=== PATIENT | male | born 1995 | race African-American/Black ===

== ENCOUNTER 2016-11-25 17:29 | Emergency (ER) | payer MEDICAID ==
[~2016-11-25] VITALS: Ht 167.6 cm; Wt 74.8 kg
[~2016-11-25 17:29] MED LIST: ATARAX25 MG ORAL; CORTISONE14 GM TP
[2016-11-25 17:31] VITALS: BP 136/69
[2016-11-25] MEDS ORDERED: NKM (17:36)
[2016-11-25] MEDS ORDERED: AMOXICILLIN500 MG ORAL (18:29)
[2016-11-25] MEDS ORDERED: IBUPROFEN600 MG ORAL (18:29)
[2016-11-25 18:37] VITALS: BP 136/69
--- NOTE | 2016-11-25 19:05 | Emergency Room Report ---
History of Present Illness General Chief Complaint: Upper Respiratory Illness Source: Patient Present Illness HPI The patient is a 21-year-old male presenting for fever and cough which began 4 days prior. He denies any known sick contacts recent travel. He denies any past medical history. He describes an 8/10 headache to both sides of his head. Pain does not radiate. He denies other symptoms including nausea, vomiting, shortness of breath, chest pain, rash, neck pain or stiffness, abdominal pain, diarrhea Allergies: Coded Allergies: SULFA (SULFONAMIDE ANTIBIOTICS) (Verified Adverse Reaction, Intermediate, 11/28/15) Patient History Past Medical History: see triage record Pertinent Family History: none Reviewed Nursing Documentation: PMH: Agreed, PSxH: Agreed Nursing Documentation-PMH Past Medical History: No Stated History Review of Systems All Other Systems: negative except mentioned in HPI Physical Exam Vital Signs Date Time Temp Pulse Resp B/P Pulse Ox O2 Delivery O2 Flow Rate FiO2 11/25/16 17:31 102.9 93 16 136/69 99 Room Air Sp02 EP Interpretation: reviewed, normal General Appearance: no apparent distress, alert, GCS 15, non-toxic Head: normocephalic, atraumatic Eyes: bilateral eye PERRL, bilateral eye normal inspection ENT: hearing grossly normal, no angioedema, normal voice, other - Bilat TM erythema and bulging Neck: full range of motion, supple/symm/no masses Respiratory: chest non-tender, lungs clear, normal breath sounds, speaking full sentences Cardiovascular #1: regular rate, rhythm, no edema Musculoskeletal: back normal, gait/station normal, normal range of motion, non- tender Neurologic: alert, oriented x3, responsive, motor strength/tone normal, sensory intact, speech normal Psychiatric: judgement/insight normal, memory normal, mood/affect normal, no suicidal/homicidal ideation Skin: normal color, no rash, warm/dry, well hydrated Lymphatic: adenopathy Medical Decision Making PA Attestation Dr. Alvarado is my supervising physician. Patient management was discussed with my supervising physician Diagnostic Impression: Primary Impression: Otitis media Qualified Codes: H66.90 - Otitis media, unspecified, unspecified ear ER Course The patient is a 21-year-old male presenting for fever and cough Differential diagnosis include but not limited to pharyngitis, sinusitis, AOM, bronchitis, PNA Physical exam: The patient is febrile. No apparent distress HEENT exam reveals bilateral tympanic membrane erythema and bulging. Oropharynx is unremarkable There is bilateral cervical lymphadenopathy Lungs are clear to auscultation bilaterally Skin is warm and dry The patient is given Motrin for fever which has reduced He is given a prescription for amoxicillin and Motrin. He will follow up with primary doctor. ER precautions given Last Vital Signs Date Time Temp Pulse Resp B/P Pulse Ox O2 Delivery O2 Flow Rate FiO2 11/25/16 18:37 102.9 81 16 136/69 99 Room Air Status: improved Disposition: HOME, SELF-CARE Condition: Improved Scripts Ibuprofen* (MOTRIN*) 600 Mg Tablet 600 MG ORAL Q8H Y for For Pain, #30 TAB 0 Refills Prov: ADRIAN TROY 11/25/16 Amoxicillin* (AMOXIL*) 500 Mg Capsule 500 MG ORAL Q12HR, #20 CAP Prov: ADRIAN TROY. 11/25/16 Patient Instructions: Otitis Media, Adult Additional Instructions: I discussed my findings with the patient. All questions and concerns have been answered. Treatment and medication compliance have been addressed. I advised the patient that they need to follow up with PMD in 3-5 days. Return to ED if symptoms worsen, new symptoms arise, or if needed for any reason. Patient verbalized understanding of discharge instructions. ADRIAN TROY Nov 25, 2016 19:05
== END 2016-11-25 18:37 | disposition home or self-care (01) ==
LOC: EMR 18:25
DX: H66.90 Otitis media, unspecified, unspecified ear (principal); Z88.2 Allergy status to sulfonamides
CPT/HCPCS: 99283

== ENCOUNTER 2016-11-26 06:30 | Emergency (ER) | payer MEDICAID ==
[~2016-11-26] VITALS: Ht 170.2 cm; Wt 74.8 kg
[~2016-11-26 06:30] MED LIST changes: +AMOXICILLIN500 MG ORAL; +IBUPROFEN600 MG ORAL; +NKM
[2016-11-26 07:17] VITALS: BP 113/73
--- NOTE | 2016-11-26 07:43 | Emergency Room Report ---
History of Present Illness General Chief Complaint: Upper Respiratory Illness Source: Patient Present Illness HPI 21-year-old male in no significant presenting with headache for one week Patient states that headache is bilateralGradual in onset 5/10 severity intermittent. Patient also reporting subjective chills but no fever. Allergies: Coded Allergies: SULFA (SULFONAMIDE ANTIBIOTICS) (Verified Adverse Reaction, Intermediate, 11/28/15) Patient History Past Medical History: none Past Surgical History: none Pertinent Family History: none Nursing Documentation-H Past Medical History: No Stated History Review of Systems Neurological: Reports: headache All Other Systems: negative except mentioned in HPI Physical Exam Vital Signs Date Time Temp Pulse Resp B/P Pulse Ox O2 Delivery O2 Flow Rate FiO2 11/26/16 07:08 98.1 70 17 113/73 97 Room Air Sp02 EP Interpretation: reviewed, normal General Appearance: normal inspection, well appearing, no apparent distress, alert, GCS 15, non-toxic, other - well appearing, well hydrated young male. nontoxic. conversing appropriately. ambulatory in ED. does not appear to be in pain Head: normocephalic, atraumatic Eyes: bilateral eye EOMI, bilateral eye PERRL, bilateral eye normal inspection ENT: normal ENT inspection, normal pharynx, normal voice, moist mucus membranes Neck: normal inspection, full range of motion, supple, no bony tend, other - no nuchal rigidity Respiratory: normal inspection, lungs clear, normal breath sounds, no respiratory distress, no retraction, no wheezing, speaking full sentences, chest symmetrical Cardiovascular #1: normal inspection, regular rate, rhythm, no edema, normal capillary refill Gastrointestinal: normal inspection, non tender, soft, non-distended, no guarding Genitourinary: no CVA tenderness Musculoskeletal: normal inspection, back normal, normal range of motion, non- tender Neurologic: normal inspection, alert, oriented x3, responsive, regulation supervisor III-XII nml as tested, motor strength/tone normal, sensory intact, normal gait, speech normal, other - motor strength 5/5 all ext, sensation to light touch intact throughout Psychiatric: normal inspection, judgement/insight normal, memory normal Skin: normal inspection, normal color, no rash, warm/dry, well hydrated, normal turgor Medical Decision Making Diagnostic Impression: Primary Impression: Headache ER Course 21 yo M with BARR x 1 week primary BARR such as tension/cluster/migraine vs. dehydration vs. stress related other serious causes such as infectious/tumor/bleed unlikely given patients benign exam plan: patient offered to obtain basic labs and IV med reglan/toradol, however patient refused as patient states his BARR is "ok" right now and he is afraid of needles. ER course stable during ED stay. remains nontoxic appearing, not in pain. Disposition: Patient was DCed to home. He is instructed to follow up with his PMD and a neurologist. Strict return prec discussed with patient such as severe/worsening BARR, neck pain , fever, chills, blurry vision which may indicate serious processes such as bleed/tumor/infection. pt verbalized understanding. Last Vital Signs Date Time Temp Pulse Resp B/P Pulse Ox O2 Delivery O2 Flow Rate FiO2 11/26/16 07:17 70 17 Room Air 11/26/16 07:17 98.1 113/73 97 Disposition: HOME, SELF-CARE Condition: Stable Referrals: NOT CHOSEN IPA/MD,REFERRING (PCP) Patient Instructions: General Headache Without Cause, [id number] Additional Instructions: PLEASE FOLLOW UP WITH YOUR PRIMARY CARE DOCTOR WITHIN 2 DAYS. PLEASE SEE A NEUROLOGIST FOR YOUR HEADACHE WITHIN 1 WEEK. IF YOU HAVE WORSENING HEADACHE, NECK PAIN, FEVER, CHILLS, BACK PAIN, NUMBNESS/WEAKNESS PLEASE COME BACK TO THE EMERGENCY ROOM IMMEDIATELY Alexandra Bauer M.D. Nov 26, 2016 07:43
[2016-11-26 07:54] VITALS: BP 113/73
== END 2016-11-26 07:56 | disposition home or self-care (01) ==
LOC: EMR 07:23
DX: R51 Headache (principal); Z88.2 Allergy status to sulfonamides
CPT/HCPCS: 99282

== ENCOUNTER 2018-04-10 15:39 | Emergency (ER) | payer MEDICAID ==
[~2018-04-10] VITALS: Ht 170.2 cm; Wt 74.8 kg
[2018-04-10] MEDS ORDERED: Tetanus/Diptheria/Pertussis Vaccine 0.5ml Syr IM ONE (16:15)
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
--- NOTE | 2018-04-10 16:59 | Diagnostic Imaging Report ---
EXAM: XR Right Tibia and Fibula, 2 Views CLINICAL HISTORY: PAIN TECHNIQUE: Frontal and lateral views of the right tibia and fibula. COMPARISON: No relevant prior studies available. FINDINGS: Bones/joints: No acute fracture. Soft tissues: No radiodense foreign body. IMPRESSION: No acute fracture.
[2018-04-10] MEDS ORDERED: IBUPROFEN600 MG ORAL (19:48)
[2018-04-10] MEDS ORDERED: AUGMENTIN 875-1 EAC1 ORAL (19:48)
[2018-04-10 19:53] VITALS: BP 120/68
--- NOTE | 2018-04-10 20:41 | Diagnostic Imaging Report ---
EXAM: US Duplex Right Lower Extremity Veins CLINICAL HISTORY: JD TECHNIQUE: Real-time duplex ultrasound scan of the right lower extremity veins integrating B-mode two-dimensional vascular structure, Doppler spectral analysis, color flow Doppler imaging and compression. COMPARISON: No relevant prior studies available. FINDINGS: Deep veins: No evidence of deep vein thrombosis. Superficial veins: Unremarkable. No thrombus in the visualized great saphenous vein. Soft tissues: Small fluid collection seen within the anterior soft tissues of the calf, likely posttraumatic hematoma given the clinical history. No popliteal cyst. IMPRESSION: 1. No evidence of deep vein thrombosis. 2. Small fluid collection seen within the anterior soft tissues of the calf, likely posttraumatic hematoma given the clinical history.
== END 2018-04-10 19:53 | disposition home or self-care (01) ==
LOC: EMR 16:15
DX: L03.115 Cellulitis of right lower limb (principal); M79.604 Pain in right leg; Z23 Encounter for immunization; Z88.2 Allergy status to sulfonamides
CPT/HCPCS: 90471; 90715; 93971; 99284

== ENCOUNTER 2019-10-06 09:43 | Emergency (ER) | payer MEDICAID ==
[~2019-10-06] VITALS: Ht 170.2 cm; Wt 77.1 kg
[~2019-10-06 09:43] MED LIST changes: +AUGMENTIN 875-1 EAC1 ORAL
[2019-10-06 09:54] VITALS: BP 118/79
[2019-10-06] MEDS ORDERED: Acetaminophen 500mg (ES) tab ORAL ONE (10:00)
[2019-10-06] MEDS ORDERED: Ketorolac 30mg Inj IM ONE (10:00)
[2019-10-06] MEDS ORDERED: LIDODERM700 M1 TOPIC (10:02)
[2019-10-06] MEDS ORDERED: IBUPROFEN600 M1 ORAL (10:02)
[2019-10-06] MEDS ORDERED: TYLENOL325 MG ORAL (10:02)
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
[2019-10-06 10:11] VITALS: BP 120/81
== END 2019-10-06 10:11 | disposition home or self-care (01) ==
LOC: EMR 10:04
DX: S30.0XXA Contusion of lower back and pelvis, initial encounter (principal); V43.52XA Car driver injured in collision with other type car in traffic accident, initial encounter; Y92.411 Interstate highway as the place of occurrence of the external cause; Z88.2 Allergy status to sulfonamides
CPT/HCPCS: 96372; J1885; J8540; Z7502; 99283

== ENCOUNTER 2019-11-12 00:38 | Emergency (ER) | payer MEDICAID ==
[~2019-11-12] VITALS: Ht 170.2 cm; Wt 77.1 kg
[~2019-11-12 00:38] MED LIST changes: +IBUPROFEN600 M1 ORAL; +LIDODERM700 M1 TOPIC; +TYLENOL325 MG ORAL
[2019-11-12 00:52] VITALS: BP 130/88
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
--- NOTE | 2019-11-12 01:10 | NUR ---
ED Nurse Note: ERMD at bedside
[2019-11-12] MEDS ORDERED: HYDROcodone/Acetamin 5/325 tab ORAL ONE (01:15)
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
--- NOTE | 2019-11-12 01:21 | NUR ---
ED Nurse Note: all medications administered, pt tolerated well no ss of distress noted. will continue to monitor.
--- NOTE | 2019-11-12 01:40 | NUR ---
ED Nurse Note: pt taken to CT in stable condition. VSS no ss of distress noted.
[2019-11-12] MEDS ORDERED: TRAMADOL HCL50 MG ORAL (01:46)
--- NOTE | 2019-11-12 01:53 | NUR ---
ED Nurse Note: Pt returned from CT in stable condition, VSS no ss of distress noted. will continue to monitor.
[2019-11-12 01:56] VITALS: BP 125/82
--- NOTE | 2019-11-12 01:56 | NUR ---
ER DISCHARGE NOTE: Patient is cleared to be discharged home per ERMD, pt is aox4, 99% on room air, with stable vital signs. pt was given dc and prescription instructions, pt was able to verbalize understanding, pt id band removed. pt is able to ambulate with steady gait. pt took all belongings. pt verbalized understanding of discharge instructions
--- NOTE | 2019-11-12 02:10 | Diagnostic Imaging Report ---
EXAM: CT Head Without Intravenous Contrast CLINICAL HISTORY: TRAUMA TECHNIQUE: Axial computed tomography images of the head/brain without intravenous contrast. CTDI is 53 mGy and DLP is 1125 mGy-cm. One or more of the following dose reduction techniques were used: automated exposure control, adjustment of the mA and/or kV according to patient size, use of iterative reconstruction technique. COMPARISON: No relevant prior studies available. FINDINGS: Brain: Unremarkable. No hemorrhage. No significant white matter disease. No edema. Ventricles: Unremarkable. No ventriculomegaly. Bones/joints: Unremarkable. No acute fracture. Soft tissues: Unremarkable. Sinuses: Unremarkable as visualized. No acute sinusitis. Mastoid air cells: Unremarkable as visualized. No mastoid effusion. IMPRESSION: Normal head/brain CT.
== END 2019-11-12 01:56 | disposition home or self-care (01) ==
LOC: EMR 01:04
DX: F07.81 Postconcussional syndrome (principal); M54.9 Dorsalgia, unspecified; Z88.2 Allergy status to sulfonamides
CPT/HCPCS: 70450; Z7502; 99284

== ENCOUNTER 2020-06-05 19:42 | Emergency (ER) | payer MEDICAID ==
[~2020-06-05] VITALS: Ht 170.2 cm; Wt 80.7 kg
[~2020-06-05 19:42] MED LIST changes: +TRAMADOL HCL50 MG ORAL
--- NOTE | 2020-06-05 19:49 | NUR ---
unable to triage, patient not in waiting room
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
[2020-06-05] MEDS ORDERED: TYLENOL EXTRA500 MG ORAL (21:54)
[2020-06-05] MEDS ORDERED: ROBAXIN-750750 MG PO (21:54)
[2020-06-05 22:00] VITALS: BP 135/93
--- NOTE | 2020-06-05 22:03 | NUR ---
ER DISCHARGE NOTE: Patient is cleared to be discharged per ER MD, pt is aaox4, on room air, with stable vital signs. pt was given d/c and prescription instructions, pt was able to verbalize understanding, pt id band removed. pt is able to ambulate with steady gait. pt took all belongings.
== END 2020-06-05 22:04 | disposition home or self-care (01) ==
LOC: EMR 21:17
DX: T14.8XXA Other injury of unspecified body region, initial encounter (principal); S09.90XA Unspecified injury of head, initial encounter; M62.838 Other muscle spasm; Y04.8XXA Assault by other bodily force, initial encounter; Y92.9 Unspecified place or not applicable; Z88.2 Allergy status to sulfonamides
CPT/HCPCS: 99281